=== PATIENT | female | born 1930 | race Caucasian/White ===

== ENCOUNTER 2017-06-24 10:00 | Day surgery (SDC) | payer MEDICARE, BC ==
--- NOTE | 2017-03-20 16:22 | HP ---
ADMISSION DIAGNOSIS: Patient needs a PEG tube. He PEG tube is mechanically exhausted. She does have one currently. PAST MEDICAL HISTORY: ALLERGIES: Per chart. MEDICATIONS: Per chart. SURGERIES: The PEG tube in the past, otherwise nothing. SOCIAL HISTORY: She lives at [place]. Otherwise negative. FAMILY HISTORY: Negative. REVIEW OF SYSTEMS: Negative. PHYSICAL EXAMINATION: VITAL SIGNS: Normal. CHEST: Clear. COR: Regular. IMPRESSION: Mechanically exhausted PEG tube. PLAN: Replacement.
--- NOTE | 2017-06-21 10:30 | HP ---
DATE OF SURGERY: 06/24/2017 ADMISSION DIAGNOSIS: G-tube is totally mechanically exhausted. ANTICIPATED PROCEDURE: PEG tube. HISTORY OF PRESENT ILLNESS: The patient has a mechanically exhausted PEG tube and is requiring a new PEG tube. She is requiring the old one out and a new one in. She is still requiring feedings and she has been on this for quite some while. PAST MEDICAL HISTORY: ALLERGIES: NONE. MEDICATIONS: Per longterm sheet. PAST SURGICAL HISTORY: None recent. SOCIAL HISTORY: Negative. Resident of a longterm. FAMILY HISTORY: Negative. REVIEW OF SYSTEMS: Multiple. PHYSICAL EXAMINATION: Fairly wasted white female of stated age. VITAL SIGNS: Normal. CHEST: Clear. COR: Regular. IMPRESSION: G-tube is totally mechanically exhausted. PLAN: New G-tube.
[2017-06-24] MEDS ORDERED: VERSED 5 MG/5 ML IV ONE (10:01)
[2017-06-24] MEDS ORDERED: DEMEROL 50 MG IV ONE (10:01)
[2017-06-24] MEDS ORDERED: Lactated Ringers 1,000 ML IV SCH (10:30)
[2017-06-24] MEDS ORDERED: CEFAZOLIN 2 GM-D5W BAG** 2 GM/50 ML ML IV SCH (10:30)
--- NOTE | 2017-06-24 13:26 | OP ---
SURGERY DATE/TIME: 06/24/2017 1240 PREOPERATIVE DIAGNOSIS: Inability to maintain nutrition. She has a PEG tube and the PEG tube is mechanically exhausted. POSTOPERATIVE DIAGNOSIS: PROCEDURE: Endoscopic PEG tube removal and endoscopic PEG placement. SURGEON: Last Aguilar M.D. ANESTHESIA: IV sedation. COMPLICATIONS: None. CONDITION: Stable. INDICATION: A patient requiring PEG tube changed. DESCRIPTION OF PROCEDURE: She is taken to endoscopy. Dorsal in position. A light IV sedation was titrated. Oximeter was kept over 90%. 15 minute sedation time. The scope is introduced. The old tube was pulled out. The new wire was pulled through and the new tube was pulled through. It exceeded 2 cm. Sterile drain sponge. The patient tolerated the procedure satisfactory.
[2017-06-24 14:12] VITALS: O2SAT 95
[2017-06-24 15:04] VITALS: BP 126/89; PULSE 68
== END 2017-06-24 15:09 | disposition home or self-care (01) ==
LOC: SDC 10:00
PROVIDERS: ATTEND Surgery
PROC: 0DH63UZ Insertion of Feeding Device into Stomach, Percutaneous Approach (ICD-10-PCS; principal; 2017-06-24)
DX: Z46.59 Encounter for fitting and adjustment of other gastrointestinal appliance and device (principal)
CPT/HCPCS: J0690; J2175; J2250